=== PATIENT | male | born 2000 | race Caucasian/White ===

== ENCOUNTER 2020-11-10 02:25 | Inpatient (IN) | payer BC, OTHER ==
[2020-11-10 03:00] LABS: BASO % 0.5 % (0-2.0); EOS % 1.6 % (0-4.5); HEMATOCRIT 43.9 % (35.4-49); HEMOGLOBIN 15.1 GM/dL (11.7-16.9); LYMPH % 7.8 % (8-40); MCH 28.8 pg (25.7-33.7); MCHC 34.4 g/dl (32.0-35.9); MEAN CELL VOLUME 83.5 fl (80-96); MEAN PLT VOLUME 8.8 fl (7.5-11.1); MONO % 5.9 % (3.8-10.2); NEUT % 84.2 % (42.8-82.8); PLATELET COUNT 165 10^3/uL (134-434); RBC 5.26 M/mm3 (4.00-5.60); RDW 13.7 % (11.9-15.9); WHITE BLOOD COUNT 14.4 K/mm3 (4.0-10.0)
[2020-11-10 03:21] LABS: ALBUMIN 4.7 g/dl (3.4-5.0); CALCIUM 9.2 mg/dL (8.5-10.1)
[2020-11-10 03:22] LABS: BLOOD UREA NITROGEN 12.7 mg/dL (7-18)
[2020-11-10 03:25] LABS: CREATININE 1.1 mg/dL (0.55-1.3)
[2020-11-10 03:26] LABS: TOT PROT 7.5 g/dl (6.4-8.2)
[2020-11-10] MEDS ORDERED: methylPREDNISolone NA SUCC 40 MG/1 ML VIAL IVPUSH SCH ×2 (05:30→14:00)
[2020-11-10] MEDS: ALBUTEROL SO4 2.5/IPRATROPIUM 0.5 INH SOL 3 ML VIAL.NEB. NEB SCH ×6 (05:36→23:33)
[2020-11-10] MEDS ORDERED: ALBUTEROL SO4 2.5/IPRATROPIUM 0.5 INH SOL 3 ML VIAL.NEB. NEB ONE (09:33)
[2020-11-10] MEDS ORDERED: MAGNESIUM SULF 50% (8.12 MEQ/2 ML-1 GM VIAL) IVPB ONE (09:37)
[2020-11-10] MEDS ORDERED: ALBUTEROL SO4 0.5 % INH SOLN 2.5 MG/0.5 ML VIAL.NEB. NEB PRN ×2 (09:41→11:44)
[2020-11-10] MEDS ORDERED: ALBUTEROL SO4 2.5/IPRATROPIUM 0.5 INH SOL 3 ML VIAL.NEB. NEB SCH (09:46)
[2020-11-10 09:57] LABS: ARTERIAL BLD GAS O2 SATURATION 96.5 % (95-98); ARTERIAL BLOOD GAS BASE EXCESS 0.9 mmol/L (-2-2); ARTERIAL BLOOD GAS PO2 75.1 mmHg (80-100); ARTERIAL BLOOD GAS pH 7.525 (7.350-7.450)
[2020-11-10 09:58] LABS: ALLENS TEST POSITIVE
[2020-11-10] MEDS ORDERED: ENOXAPARIN NA (PORCINE) 40 MG/0.4 ML DISP.SYRIN SQ SCH (10:00)
[2020-11-10] MEDS ORDERED: AZITHROMYCIN IVPB 500 MG/250 ML BAG IVPB SCH (10:00)
[2020-11-10 10:03] LABS: HEMATOCRIT 46.3 % (35.4-49); HEMOGLOBIN 16.4 GM/dL (11.7-16.9); MCH 29.6 pg (25.7-33.7); MCHC 35.4 g/dl (32.0-35.9); MEAN CELL VOLUME 83.6 fl (80-96); PLATELET COUNT 207 10^3/uL (134-434); RBC 5.53 M/mm3 (4.00-5.60); RDW 13.9 % (11.9-15.9); WHITE BLOOD COUNT 11.8 K/mm3 (4.0-10.0)
[2020-11-10] MEDS ORDERED: MAGNESIUM 1GM/D5W - 1 GM/100 ML IVPB IVPB ONE (10:11)
[2020-11-10] MEDS ORDERED: AZITHROMYCIN IVPB 500 MG/250 ML BAG IVPB ONE (10:11)
[2020-11-10] MEDS ORDERED: ENOXAPARIN NA (PORCINE) 40 MG/0.4 ML DISP.SYRIN SQ ONE (10:11)
[2020-11-10 10:22] LABS: CALCIUM 10.2 mg/dL (8.5-10.1)
[2020-11-10 10:23] LABS: BLOOD UREA NITROGEN 10.7 mg/dL (7-18); MAGNESIUM 2.1 mg/dL (1.8-2.4)
[2020-11-10 11:07] LABS: ANISOCYTOSIS 0; HELMET CELLS 0; HOWELL-JOLLY BODIES 0; MACROCYTOSIS 0; OVALOCYTE 0; PLATELET ESTIMATE NORMAL; ROULEAU 0; SICKELED CELLS 0; TARGET CELLS 0; TEAR DROP CELLS 0; TOXIC GRANULATION 0
[2020-11-10 11:58] VITALS: BMI 30.4
[2020-11-10] MEDS: BUDESONIDE/FORMETEROL FUMARATE 160/4.5 mcg INHALER IH SCH ×2 (12:44→21:05)
[2020-11-10] MEDS ORDERED: PT OWN MED DRAWER 7, Y5N ONE (13:27)
[2020-11-10] MEDS: methylPREDNISolone NA SUCC 40 MG/1 ML VIAL IVPUSH SCH ×2 (13:59→21:03)
[2020-11-10] MEDS ORDERED: ALBUTEROL SO4 2.5/IPRATROPIUM 0.5 INH SOL 3 ML VIAL.NEB. NEB PRN (17:38)
[2020-11-10] MEDS: MONTELUKAST NA 10 MG TABLET PO SCH (21:05)
[2020-11-10] MEDS: MELATONIN 5 MG TABLETS PO PRN (21:34)
[2020-11-10] MEDS ORDERED: MONTELUKAST NA 10 MG TABLET PO SCH (22:00)
[2020-11-11] MEDS: ALBUTEROL SO4 2.5/IPRATROPIUM 0.5 INH SOL 3 ML VIAL.NEB. NEB SCH ×6 (04:19→20:15)
[2020-11-11] MEDS: methylPREDNISolone NA SUCC 40 MG/1 ML VIAL IVPUSH SCH ×2 (06:01→17:29)
[2020-11-11 09:46] LABS: HEMATOCRIT 46.8 % (35.4-49); HEMOGLOBIN 16.4 GM/dL (11.7-16.9); MCH 29.4 pg (25.7-33.7); MEAN CELL VOLUME 83.8 fl (80-96); MEAN PLT VOLUME 9.3 fl (7.5-11.1); PLATELET COUNT 221 10^3/uL (134-434); RBC 5.59 M/mm3 (4.00-5.60); RDW 13.7 % (11.9-15.9); WHITE BLOOD COUNT 15.4 K/mm3 (4.0-10.0)
[2020-11-11] MEDS ORDERED: AZITHROMYCIN IVPB 500 MG/250 ML BAG IVPB SCH (10:00)
[2020-11-11] MEDS ORDERED: ENOXAPARIN NA (PORCINE) 40 MG/0.4 ML DISP.SYRIN SQ SCH (10:00)
[2020-11-11] MEDS: BUDESONIDE/FORMETEROL FUMARATE 160/4.5 mcg INHALER IH SCH ×2 (10:17→21:23)
[2020-11-11 10:46] LABS: BLOOD UREA NITROGEN 16.8 mg/dL (7-18); MAGNESIUM 2.6 mg/dL (1.8-2.4)
[2020-11-11 10:47] LABS: ALBUMIN 4.5 g/dl (3.4-5.0)
[2020-11-11 10:49] LABS: CREATININE 0.8 mg/dL (0.55-1.3)
[2020-11-11 10:50] LABS: ANISOCYTOSIS 0; HELMET CELLS 0; HOWELL-JOLLY BODIES 0; MACROCYTOSIS 0; OVALOCYTE 0; PHOSPHOROUS 3.7 mg/dL (2.5-4.9); PLATELET ESTIMATE NORMAL; ROULEAU 0; SICKELED CELLS 0; TARGET CELLS 0; TEAR DROP CELLS 0; TOXIC GRANULATION 0
[2020-11-11 10:51] LABS: BILIRUBIN,TOTAL 0.9 mg/dL (0.2-1); TOT PROT 7.8 g/dl (6.4-8.2)
[2020-11-11] MEDS: MELATONIN 5 MG TABLETS PO PRN (21:57)
[2020-11-11] MEDS: MONTELUKAST NA 10 MG TABLET PO SCH (21:57)
[2020-11-12] MEDS: methylPREDNISolone NA SUCC 40 MG/1 ML VIAL IVPUSH SCH (01:21)
[2020-11-12] MEDS: ALBUTEROL SO4 2.5/IPRATROPIUM 0.5 INH SOL 3 ML VIAL.NEB. NEB SCH ×2 (07:45→11:45)
[2020-11-12 09:36] LABS: HEMATOCRIT 49.2 % (35.4-49); HEMOGLOBIN 16.9 GM/dL (11.7-16.9); MCH 28.9 pg (25.7-33.7); MCHC 34.4 g/dl (32.0-35.9); MEAN CELL VOLUME 84.1 fl (80-96); MEAN PLT VOLUME 9.2 fl (7.5-11.1); PLATELET COUNT 245 10^3/uL (134-434); RBC 5.85 M/mm3 (4.00-5.60); RDW 13.6 % (11.9-15.9); WHITE BLOOD COUNT 14.9 K/mm3 (4.0-10.0)
[2020-11-12] MEDS: BUDESONIDE/FORMETEROL FUMARATE 160/4.5 mcg INHALER IH SCH ×2 (09:46→09:47)
[2020-11-12] MEDS ORDERED: methylPREDNISolone NA SUCC 40 MG/1 ML VIAL IVPUSH SCH (10:00)
[2020-11-12 10:18] LABS: CALCIUM 9.8 mg/dL (8.5-10.1)
[2020-11-12 10:19] LABS: BLOOD UREA NITROGEN 19.7 mg/dL (7-18)
[2020-11-12 10:54] LABS: CREATININE 1.1 mg/dL (0.55-1.3)
[2020-11-12 11:29] VITALS: BP 136/89; PULSE 106; TEMP 98.6
== END 2020-11-12 13:42 | disposition home or self-care (01) | DRG 202 ==
LOC: JER 02:25 → JERBED 03:48 → J8W 11:54
PROVIDERS: ADMIT Internal Medicine; ATTEND Internal Medicine
DX: J45.901 Unspecified asthma with (acute) exacerbation (principal); J96.01 Acute respiratory failure with hypoxia; F12.90 Cannabis use, unspecified, uncomplicated; Z88.0 Allergy status to penicillin; E66.9 Obesity, unspecified; Z68.30 Body mass index [BMI] 30.0-30.9, adult
CPT/HCPCS: 36415; 36600; 71045-TC-FY; 80048; 80053; 82803; 83735; 84100; 84484; 85025; 85027; 93005; 93010; 94150; 94640; 99285-25; C9803; U0003; U0005

== ENCOUNTER 2020-12-22 00:48 | Emergency (ER) | payer OTHER ==
[2020-12-22 00:59] VITALS: BMI 29.2
[2020-12-22] MEDS ORDERED: MAG HYDROX/AL HYDROX/SIMETH -MYLANTA- ORAL SUSPENSION PO ONE (01:55)
[2020-12-22] MEDS ORDERED: FAMOTIDINE 20 MG/50 ML IVPB 20 MG/50 ML MG IVPB ONE ×2 (01:55→01:59)
[2020-12-22] MEDS ORDERED: ACETAMINOPHEN 1000 MG/100 ML VIAL (NON FORMULARY) IVPB ONE (01:55)
[2020-12-22] MEDS ORDERED: SODIUM CHLORIDE 0.9% 500 ML INFUS.BAG IV ONE (01:56)
[2020-12-22] MEDS ORDERED: MAG HYDROX/AL HYDROX/SIMETH 30 ML UNIT-DOSE CUP ONE ×2 (01:59→02:24)
[2020-12-22] MEDS ORDERED: ACETAMINOPHEN INJECTION 100 ML IVPB ONE (01:59)
[2020-12-22 02:46] LABS: HEMATOCRIT 45.8 % (35.4-49); HEMOGLOBIN 16.1 GM/dL (11.7-16.9); MCH 28.9 pg (25.7-33.7); MCHC 35.1 g/dl (32.0-35.9); MEAN CELL VOLUME 82.2 fl (80-96); RBC 5.57 M/mm3 (4.00-5.60); RDW 13.3 % (11.9-15.9); WHITE BLOOD COUNT 8.6 K/mm3 (4.0-10.0)
[2020-12-22 02:47] LABS: MEAN PLT VOLUME 8.8 fl (7.5-11.1); PLATELET COUNT 139 10^3/uL (134-434)
[2020-12-22 02:48] LABS: BASO % 0.6 % (0-2.0); EOS % 0.5 % (0-4.5); LYMPH % 23.7 % (8-40); NEUT % 67.2 % (42.8-82.8)
[2020-12-22 03:06] LABS: BLOOD UREA NITROGEN 13.5 mg/dL (7-18); CREATININE 0.9 mg/dL (0.55-1.3)
[2020-12-22 03:09] LABS: ALBUMIN 4.7 g/dl (3.4-5.0); CALCIUM 9.4 mg/dL (8.5-10.1); TOT PROT 7.8 g/dl (6.4-8.2)
[2020-12-22 03:10] LABS: BILIRUBIN,TOTAL 0.8 mg/dL (0.2-1)
[2020-12-22 04:26] VITALS: TEMP 98.2
[2020-12-22] MEDS ORDERED: PANTOPRAZOLE SODIUM 40 MG VIAL IVPUSH ONE (04:32)
[2020-12-22] MEDS ORDERED: PANTOPRAZOLE SODIUM 40 MG VIAL ONE (04:50)
[2020-12-22 05:22] LABS: URINE APPEARANCE CLEAR; URINE BILIRUBIN NEGATIVE (NEGATIVE); URINE COLOR YELLOW; URINE GLUCOSE (UA) NEGATIVE (NEGATIVE); URINE KETONE 40 mg/dl (NEGATIVE)
[2020-12-22 05:23] LABS: PH,URINE 6.5 (5.0-8.0); URINE LEUK ESTERASE NEGATIVE (NEGATIVE); URINE NITRITE NEGATIVE (NEGATIVE); URINE PROTEIN NEGATIVE (NEGATIVE)
[2020-12-22] MEDS ORDERED: SUCRALFATE 1 GM/10 ML UNIT DOSE CUPS PO ONE (07:41)
[2020-12-22 08:42] VITALS: BP 104/71; PULSE 87
== END 2020-12-22 09:41 | disposition home or self-care (01) ==
LOC: JER 00:48
PROC: 3E033GC Introduction of Other Therapeutic Substance into Peripheral Vein, Percutaneous Approach (ICD-10-PCS; principal; 2020-12-22)
DX: R10.31 Right lower quadrant pain (principal); R55 Syncope and collapse; S02.2XXA Fracture of nasal bones, initial encounter for closed fracture; W19.XXXA Unspecified fall, initial encounter
CPT/HCPCS: 36415; 70450-TC; 70488-TC; 71045-TC-FY; 72125-TC; 74177-TC; 80053; 81003; 83690; 84484; 85025; 87086; 93005; 93010; 99285-25; C9803; J0131; U0003; U0005